=== PATIENT | male | born 1970 | race Caucasian/White ===

== ENCOUNTER 2020-05-14 05:58 | Day surgery (SDC) | payer OTHER, SELFPAY ==
[~2020-05-14] VITALS: Ht 182.9 cm; Wt 65.8 kg
[2020-05-14] MEDS ORDERED: LIDOCAINE 2% 100 MG/5 ML UJET TP ONE (07:36)
[2020-05-14] MEDS ORDERED: MIDAZOLAM 2 MG/2 ML VIAL ONE (07:36)
[2020-05-14] MEDS ORDERED: fentaNYL citrate 0.05 MG/ML VIAL ONE (07:36)
[2020-05-14] MEDS ORDERED: MIDAZOLAM 2 MG/2 ML VIAL IVP ONE (08:25)
[2020-05-14] MEDS ORDERED: fentaNYL citrate 0.05 MG/ML VIAL IVP ONE (08:25)
== END 2020-05-14 08:50 | disposition home or self-care (01) ==
LOC: MDS 05:58 → MFCC 06:07 → MDS 08:50
PROVIDERS: ATTEND Internal Medicine Gastroenterology
DX: Z12.11 Encounter for screening for malignant neoplasm of colon (principal); D12.0 Benign neoplasm of cecum; D12.2 Benign neoplasm of ascending colon; D12.3 Benign neoplasm of transverse colon; K57.30 Diverticulosis of large intestine without perforation or abscess without bleeding; K30 Functional dyspepsia; I10 Essential (primary) hypertension; E11.9 Type 2 diabetes mellitus without complications; Z87.891 Personal history of nicotine dependence; Z79.899 Other long term (current) drug therapy; Z98.890 Other specified postprocedural states; Z11.59 Encounter for screening for other viral diseases
CPT/HCPCS: 36415; 43239; 45385; 86677; J2250; J3010; U0003